=== PATIENT | male | born 1965 | race African-American/Black ===

== ENCOUNTER 2020-09-12 17:29 | Emergency (ER) | payer SELFPAY ==
[~2020-09-12] VITALS: Ht 177.8 cm; Wt 77.0 kg
[2020-09-12 21:52] LABS: CHLORIDE 103 mEq/L (98-107)
[2020-09-12] MEDS ORDERED: APIXABAN 5 MG TABLET PO STA (22:56)
[2020-09-12] MEDS ORDERED: APIX5TAB MT (22:59)
[2020-09-12] MEDS ORDERED: HYDROCODONE/ACETAMINOPHEN 5/325MG TABLET PO ONE (23:15)
[2020-09-13 00:17] VITALS: BP 123/69
== END 2020-09-13 00:17 | disposition home or self-care (01) ==
LOC: ER 18:28
DX: I82.4Z2 Acute embolism and thrombosis of unspecified deep veins of left distal lower extremity (principal)
CPT/HCPCS: 36415; 80048; 93971; 99284